=== PATIENT | male | born 1995 | race Caucasian/White ===

== ENCOUNTER 2018-02-14 16:42 | Emergency (ER) | payer BC ==
--- NOTE | 2018-02-14 16:48 | ER Report ---
History and Physical Time Seen By MD: 16:48 Hx. of Stated Complaint: HAD A 30 SEC SEIZURE WITNESSED BY WILBERT CHANG. 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 There is no head trauma. The patient states prior to the seizure he remembers playing baseball. He denies headache or chest pain or to the incident. He otherwise felt well and at his baseline. He denies any drug use or over-the- counter supplements or medications. He states the last time he drank alcohol was last weekend. He has not had a decrease in his sleep recently. His never had a seizure previously. No fever or chills. Currently he complains of just a mild headache which is not the worse of his life. Remainder of the 14 system rev: Yes (ARIANNA TRINIDAD MD) HPI/ROS Please see Dr. Trinidad's note (SANDRA KEARNS DO) Allergies: Coded Allergies: metoclopramide (Verified Allergy, Unknown, HIVES, 02/14/18) Penicillins (Verified Adverse Reaction, Unknown, HIVES, 02/14/18) Home Meds Reported Medications Venlafaxine Hcl (EFFEXOR XR) 150 Mg Cap.er.24h, 150 MG PO QDAY 02/14/18 Minocycline Hcl (MINOCYCLINE HCL) 100 Mg Capsule, 100 MG PO BID, CAPSULE 02/14/18 Alprazolam (XANAX) 0.5 Mg Tablet, 1 TAB PO TID PRN for ANXIETY, TAB 02/14/18 Reviewed Nurses Notes: Yes (ARIANNA TRINIDAD MD) Constitutional Vital Sign - Last 24 Hours 02/14/18 02/14/18 02/14/18 02/14/18 16:42 16:44 17:00 17:12 Pulse 119 112 89 Resp 14 15 B/P (MAP) 133/91 (105) 133/91 112/65 (81) Pulse Ox 94 94 93 O2 Delivery Room Air Room Air Room Air 02/14/18 02/14/18 02/14/18/20/18 17:30 17:42 17:47 18:00 Pulse 86 85 Resp 12 10 B/P (MAP) 117/62 (80) 106/79 (88) Pulse Ox 96 98 O2 Delivery Room Air Room Air 02/14/18 02/14/18 18:17 18:30 Pulse 76 Resp 11 B/P (MAP) 118/91 (100) Pulse Ox 98 O2 Delivery Room Air (SANDRA KEARNS DO) Physical Exam General Appearance: The patient is alert, has no immediate need for airway protection and no current signs of toxicity. Eyes: Pupils equal and round no injection. Respiratory: Chest is non tender, lungs are clear to auscultation. Cardiac: regular rate and rhythm Gastrointestinal: Abdomen is soft and non tender, no masses, bowel sounds normal. Neck: Neck is supple and non tender. Extremities have full range of motion and are non tender. Skin: Small abrasion to the left elbow DIFFERENTIAL DIAGNOSIS: After history and physical exam differential diagnosis was considered for intracranial mass, intracranial hemorrhage, toxidrome or withdrawal, new onset seizure disorder (ARIANNA TRINIDAD MD) Physical Exam Please see Dr. Trinidad's note (SANDRA KEARNS DO) Medical Decision Making Data Points Result Diagram: 02/14/18 1650 02/14/18 1650 Laboratory Hematology Test 02/14/18 16:50 02/14/18 17:55 02/14/18 18:32 Red Blood Count 6.24 M/uL (4.00-5.60) Mean Corpuscular Volume 87.5 fL (80.0-96.0) Mean Corpuscular Hemoglobin 29.4 pg (26.0-33.0) Mean Corpuscular Hemoglobin Concent 33.5 g/dL (32.0-36.0) Red Cell Distribution Width 13.3 % (11.5-14.5) Mean Platelet Volume 8.9 fL (7.2-11.1) Neutrophils (%) (Auto) 63.2 % (39.4-72.5) Lymphocytes (%) (Auto) 25.1 % (17.6-49.6) Monocytes (%) (Auto) 9.8 % (4.1-12.4) Eosinophils (%) (Auto) 0.6 % (0.4-6.7) Basophils (%) (Auto) 1.3 % (0.3-1.4) Nucleated RBC Relative Count (auto) 0.0 /100WBC Neutrophils # (Auto) 4.6 K/uL (2.0-7.4) Lymphocytes # (Auto) 1.8 K/uL (1.3-3.6) Monocytes # (Auto) 0.7 K/uL (0.3-1.0) Eosinophils # (Auto) 0.0 K/uL (0.0-0.5) Basophils # (Auto) 0.1 K/uL (0.0-0.1) Nucleated RBC Absolute Count (auto) 0.00 K/uL Sodium Level 142 mmol/L (137-145) Potassium Level 4.1 mmol/L (3.5-5.0) Chloride Level 103 mmol/L (98-107) Carbon Dioxide Level 16 mmol/L (22-30) Blood Urea Nitrogen 13 mg/dl (9-21) Creatinine 1.20 mg/dl (0.66-1.25) Glomerular Filtration Rate Calc > 60.0 Random Glucose 99 mg/dl (75-110) Calcium Level 9.1 mg/dl (8.4-10.2) Total Bilirubin 0.6 mg/dl (0.2-1.3) Aspartate Amino Transf (AST/SGOT) 50 U/L (0-35) Alanine Aminotransferase (ALT/SGPT) 54 U/L (0-56) Alkaline Phosphatase 92 U/L (0-126) Total Protein 7.9 g/dl (6.3-8.2) Albumin 4.7 g/dl (3.5-5.0) Serum Alcohol < 10 mg/dl Lactate 1.8 mmol/L (0.7-2.1) Urine Color Yellow Urine Clarity Clear Urine pH 5.0 pH (4.8-9.5) Urine Specific [place] 1.015 Urine Protein Negative mg/dL (NEGATIVE) Urine Glucose (UA) Negative mg/dL (NEGATIVE) Urine Ketones Negative mg/dL (NEGATIVE) Urine Blood Small (NEGATIVE) Urine Nitrite Negative (NEGATIVE) Urine Bilirubin Negative (NEGATIVE) Urine Urobilinogen Negative mg/dL (0.2-1.9) Urine Leukocyte Esterase Negative (NEGATIVE) Urine RBC None /HPF (0-2/HPF) Urine WBC <1 /HPF (0-5/HPF) Urine Squamous Epithelial Cells Few /LPF (</=FEW) Urine Bacteria Few /HPF (NONE-FEW) Urine Mucus None /HPF (NONE-FEW) Urine Opiates Screen Negative Urine Barbiturates Screen Negative Ur Tricyclic Antidepressants Screen Negative Urine Phencyclidine Screen Negative Urine Amphetamines Screen Negative Urine Benzodiazepines Screen Negative Urine Cocaine Screen Negative Urine Cannabinoids Screen Negative Chemistry Test 02/14/18 16:50 02/14/18 17:55 02/14/18 18:32 White Blood Count 7.3 k/uL (4.5-11.0) Red Blood Count 6.24 M/uL (4.00-5.60) Hemoglobin 18.3 g/dL (14.0-18.0) Hematocrit 54.6 % (42.0-52.0) Mean Corpuscular Volume 87.5 fL (80.0-96.0) Mean Corpuscular Hemoglobin 29.4 pg (26.0-33.0) Mean Corpuscular Hemoglobin Concent 33.5 g/dL (32.0-36.0) Red Cell Distribution Width 13.3 % (11.5-14.5) Platelet Count 322 K/uL (150-450) Mean Platelet Volume 8.9 fL (7.2-11.1) Neutrophils (%) (Auto) 63.2 % (39.4-72.5) Lymphocytes (%) (Auto) 25.1 % (17.6-49.6) Monocytes (%) (Auto) 9.8 % (4.1-12.4) Eosinophils (%) (Auto) 0.6 % (0.4-6.7) Basophils (%) (Auto) 1.3 % (0.3-1.4) Nucleated RBC Relative Count (auto) 0.0 /100WBC Neutrophils # (Auto) 4.6 K/uL (2.0-7.4) Lymphocytes # (Auto) 1.8 K/uL (1.3-3.6) Monocytes # (Auto) 0.7 K/uL (0.3-1.0) Eosinophils # (Auto) 0.0 K/uL (0.0-0.5) Basophils # (Auto) 0.1 K/uL (0.0-0.1) Nucleated RBC Absolute Count (auto) 0.00 K/uL Glomerular Filtration Rate Calc > 60.0 Calcium Level 9.1 mg/dl (8.4-10.2) Total Bilirubin 0.6 mg/dl (0.2-1.3) Aspartate Amino Transf (AST/SGOT) 50 U/L (0-35) Alanine Aminotransferase (ALT/SGPT) 54 U/L (0-56) Alkaline Phosphatase 92 U/L (0-126) Total Protein 7.9 g/dl (6.3-8.2) Albumin 4.7 g/dl (3.5-5.0) Serum Alcohol < 10 mg/dl Lactate 1.8 mmol/L (0.7-2.1) Urine Color Yellow Urine Clarity Clear Urine pH 5.0 pH (4.8-9.5) Urine Specific [place] 1.015 Urine Protein Negative mg/dL (NEGATIVE) Urine Glucose (UA) Negative mg/dL (NEGATIVE) Urine Ketones Negative mg/dL (NEGATIVE) Urine Blood Small (NEGATIVE) Urine Nitrite Negative (NEGATIVE) Urine Bilirubin Negative (NEGATIVE) Urine Urobilinogen Negative mg/dL (0.2-1.9) Urine Leukocyte Esterase Negative (NEGATIVE) Urine RBC None /HPF (0-2/HPF) Urine WBC <1 /HPF (0-5/HPF) Urine Squamous Epithelial Cells Few /LPF (</=FEW) Urine Bacteria Few /HPF (NONE-FEW) Urine Mucus None /HPF (NONE-FEW) Urine Opiates Screen Negative Urine Barbiturates Screen Negative Ur Tricyclic Antidepressants Screen Negative Urine Phencyclidine Screen Negative Urine Amphetamines Screen Negative Urine Benzodiazepines Screen Negative Urine Cocaine Screen Negative Urine Cannabinoids Screen Negative Toxicology Test 02/14/18 16:50 02/14/18 18:32 Serum Alcohol < 10 mg/dl Urine Opiates Screen Negative Urine Barbiturates Screen Negative Ur Tricyclic Antidepressants Screen Negative Urine Phencyclidine Screen Negative Urine Amphetamines Screen Negative Urine Benzodiazepines Screen Negative Urine Cocaine Screen Negative Urine Cannabinoids Screen Negative Urinalysis Test 02/14/18 18:32 Urine Color Yellow Urine Clarity Clear Urine pH 5.0 pH (4.8-9.5) Urine Specific [place] 1.015 Urine Protein Negative mg/dL (NEGATIVE) Urine Glucose (UA) Negative mg/dL (NEGATIVE) Urine Ketones Negative mg/dL (NEGATIVE) Urine Blood Small (NEGATIVE) Urine Nitrite Negative (NEGATIVE) Urine Bilirubin Negative (NEGATIVE) Urine Urobilinogen Negative mg/dL (0.2-1.9) Urine Leukocyte Esterase Negative (NEGATIVE) Urine RBC None /HPF (0-2/HPF) Urine WBC <1 /HPF (0-5/HPF) Urine Squamous Epithelial Cells Few /LPF (</=FEW) Urine Bacteria Few /HPF (NONE-FEW) Urine Mucus None /HPF (NONE-FEW) (SNADRA KEARNS DO) EKG/Imaging Imaging EXAMINATION: CT head without IV contrast HISTORY: Seizure. TECHNIQUE: Axial CT images of the head were obtained from the vertex to the skull base without IV contrast, with coronal and sagittal 2D reconstructed images. One of the following dose optimization techniques was utilized in the performance of this exam: Automated exposure control; adjustment of the mA and/or kV according to the patient's size; or use of an iterative reconstruction technique. Specific details can be referenced in the facility's radiology CT exam operational policy. COMPARISON: None. FINDINGS: The intracranial contents are unremarkable. No CT evidence of intracranial hemorrhage, mass lesion, or acute infarct. No midline shift or extra-axial fluid collections. Cordero-white differentiation is maintained. The calvarium is intact. The visualized paranasal sinuses and mastoid air cells are unopacified. IMPRESSION: Unremarkable noncontrast head CT. (SANDRA KEARNS DO) ED Course/Re-evaluation ED Course I took over patient care from Dr. Trinidad. Patient's CT scan of the head showed no acute intracranial findings. Urinalysis and urine tox screen were negative and unremarkable for infection. I updated the patient and obtain further details. I called and spoke with neurology concrete float maker from [facility] Dr. Barrientos and gave Dr. Barrientos the patient's name and contact information and took down neurology office contact information to arrange for close follow-up. Patient was given seizure precautions and advised not to drive or place himself in situations that if he had recurrent seizures would put him in danger. Patient agreed with plan. Patient will not drive until he is able follow up with neurology. Patient was alert and oriented, hemodynamically stable, afebrile prior to discharge. Decision to Disposition Date: Feb 14, 2018 Decision to Disposition Time: 19:31 (SANDRA KEARNS DO) Depart Departure Latest Vital Signs Vital Signs Date Time Temp Pulse Resp B/P (MAP) Pulse Ox O2 Delivery O2 Flow Rate FiO2 02/14/18 18:30 118/91 (100) 02/14/18 18:17 76 11 98 Room Air (SANDRA KEARNS DO) Impression: Primary Impression: Seizure Condition: Improved Disposition: HOME OR SELF-CARE Patient Instructions: New-Onset Seizure in Adults (ED) Additional Instructions: You are not permitted to drive until you're able to follow up with neurology for evaluation. Please do not place yourself in any situations in which if you had a recurrent seizure would place you in danger. Please return promptly if you develop recurrent seizure activity. Please drink plenty of water and avoid a lcohol or drug use in the interim. CT imaging of her head was unremarkable, your labs were found to be normal. Your name and contact information were supplied to the neurologist on-call from [facility]. The office will contact you tomorrow to arrange for an appointment. If he did not hear from the office tomorrow, please call [phone]. ARIANNA TRINIDAD MD Feb 14, 2018 16:48 SANDRA KEARNS DO Feb 14, 2018 19:33
[2018-02-14] MEDS ORDERED: ALPR-429 PO (16:51)
[2018-02-14] MEDS ORDERED: MINO100C27 PO (16:53)
[2018-02-14] MEDS ORDERED: ONDANSETRON 4 MG/2 ML VIAL ONE ×2 (16:53→16:56)
[2018-02-14] MEDS ORDERED: VENL150C61 PO (17:12)
[2018-02-14] MEDS ORDERED: NS(*) 0.9% 1000 ML BAG 1,000 ML IV ONE (17:30)
[2018-02-14 17:46] LABS: PLATELET COUNT, AUTOMATED 322 K/uL (150-450)
--- NOTE | 2018-02-14 17:57 | EKG ---
FACILITY: [facility] [place] PATIENT NAME: FORD LOONEY : [id number] MR: [id number] V: [id number] EXAM DATE: ORDERING PHYSICIAN: ARIANNA TRINIDAD TECHNOLOGIST: PAUL Test Reason : SIEZURE ACTIVITY Blood Pressure : / mmHG Vent. Rate : 075 BPM Atrial Rate : 075 BPM P-R Int : 170 ms QRS Dur : 092 ms QT Int : 400 ms P-R-T Axes : 067 088 069 degrees QTc Int : 446 ms Normal sinus rhythm Early repolarization QRS voltages are marginally high which may be due to age or possibly LVH. No previous ECGs available Confirmed by WILL YANEZ ([id number]) on 02/14/2018 7:07:45 PM Referred By: AMOS Confirmed By:WILL YANEZ
--- NOTE | 2018-02-14 18:37 | RADIOLOGY IMAGING REPORT ---
FACILITY: [facility] - [place] PATIENT NAME: Portillo Licona : 1995 MR: [id number] V: [id number] EXAM DATE: ORDERING PHYSICIAN: ARIANNA TRINIDAD TECHNOLOGIST: Location: [facility] Patient: Portillo Licona : 1995 Visit/Account:[id number] Date of Sevice: 02/14/2018 EXAMINATION: CT head without IV contrast HISTORY: Seizure. TECHNIQUE: Axial CT images of the head were obtained from the vertex to the skull base without IV c ontrast, with coronal and sagittal 2D reconstructed images. One of the following dose optimization techniques was utilized in the performance of this exam: Autom ated exposure control; adjustment of the mA and/or kV according to the patient's size; or use of an i terative reconstruction technique. Specific details can be referenced in the facility's radiology C T exam operational policy. COMPARISON: None. FINDINGS: The intracranial contents are unremarkable. No CT evidence of intracranial hemorrhage, mass lesion, or acute infarct. No midline shift or extra-axial fluid collections. Cordero-white differentiation is maintained. The calvarium is intact. The visualized paranasal sinuses and mastoid air cells are unopacified. IMPRESSION: Unremarkable noncontrast head CT. Report Dictated By: Alex Interiano MD at 02/14/2018 6:32 PM Report E-Signed By: Alex Interiano MD at 02/14/2018 6:34 PM WSN:[id number]
[2018-02-14] MEDS ORDERED: CETIRIZINE HCL 10 MG TAB PO ONE (18:45)
[2018-02-14 19:30] VITALS: BP 120/70
== END 2018-02-14 19:47 | disposition home or self-care (01) ==
LOC: ER 16:47
DX: R56.9 Unspecified convulsions (principal)
CPT/HCPCS: 36415; 70450; 80305; 80320; 81001; 83605; 85025; 93005; 96360; 99284; J2405; J7030; 82040; 82247; 82310; 82374; 82435; 82565; 82947; 84075; 84132; 84155; 84295; 84450; 84460; 84520

== ENCOUNTER → 2018-02-14 | Outpatient (CLI) | payer BC ==
[~2018-02-14] MED LIST: ALPR-429 PO; MINO100C27 PO; VENL150C61 PO
== END ==
LOC: AMB 16:23
PROVIDERS: ATTEND Nurse Practitioner
DX: R56.9 Unspecified convulsions (principal)
CPT/HCPCS: A0425; A0427

== ENCOUNTER 2018-06-28 14:55 | Emergency (ER) | payer BC ==
[~2018-06-28 14:55] MED LIST changes: -LEVE750T74 PO
--- NOTE | 2018-06-28 15:14 | ER Report ---
History and Physical Time Seen By MD: 15:13 Hx. of Stated Complaint: 90 second seizure, frontal headache HPI/ROS CHIEF COMPLAINT: seizure HISTORY OF PRESENT ILLNESS: Pt here for evaluation after a seizure. Pt states he was feeling fine and then blacked out. Friend states he slid down the wall and was seizing when he hit the floor. Tonic clonic for 60-90 seconds then was postictal for 20 minutes or so. Pt alert in the emergency room. Pt c/o mild headache and asked for tylenol. Pt has no other complaints. Pt had his first seizure back in Jan. Pt states he followed up with a neurologist back then and was told he was okay. Pt is not on any antiseizure medications. Pt had no prior hx of seizures prior to this past january. Pt denies drug useage. Pt edward any hx of seizures as child. Pt did not loose bowel or bladder or bite his tongue on todays episode. REVIEW OF SYSTEMS: Constitutional: No fever, no chills. Eyes: No discharge. ENT: No sore throat. Cardiovascular: No chest pain, no palpitations. Respiratory: No cough, no shortness of breath. Gastrointestinal: No abdominal pain, no vomiting. Genitourinary: No hematuria. Musculoskeletal: No back pain. Skin: No rashes. Neurological: + headache, +seizure. Allergies: Coded Allergies: metoclopramide (Verified Allergy, Unknown, HIVES, 02/14/18) Penicillins (Verified Adverse Reaction, Unknown, HIVES, 02/14/18) Home Meds Active Scripts Levetiracetam (KEPPRA) 750 Mg Tablet, 750 MG PO BID, #60 TAB 1 Refill Prov:ADAMAAMADOR Cj ANDERSON 06/28/18 Reported Medications Venlafaxine Hcl (EFFEXOR XR) 150 Mg Cap.er.24h, 150 MG PO QDAY 02/14/18 Minocycline Hcl (MINOCYCLINE HCL) 100 Mg Capsule, 100 MG PO BID, CAPSULE 02/14/18 Alprazolam (XANAX) 0.5 Mg Tablet, 1 TAB PO TID PRN for ANXIETY, TAB 02/14/18 Past Medical/Surgical History pmhx: seizures,anxiety, acne Pshx: noncontrib Reviewed Nurses Notes: Yes Old Medical Records Reviewed: Yes Hx Smoking: No Hx Substance Use Disorder: No Hx Alcohol Use: Yes (occasional) Constitutional Vital Sign - Last 24 Hours 06/28/18 06/28/18 06/28/18 06/28/18 14:55 14:56 14:58 15:00 Temp 98.8 Pulse ??? 109 Resp 14 B/P (MAP) 130/74 136/76 (96) 130/74 (92) Pulse Ox 94 O2 Delivery Room Air 06/28/18 06/28/18 06/28/18 06/28/18 15:10 15:25 15:30 15:40 Pulse 105 89 90 B/P (MAP) 131/82 (98) Pulse Ox 95 97 96 06/28/18 06/28/18 06/28/18 06/28/18 15:55 16:00 16:10 16:25 Pulse 94 98 ??? B/P (MAP) 148/65 (92) Pulse Ox 99 97 06/28/18 06/28/18 06/28/18 06/28/18 16:30 16:35 16:50 17:00 Pulse 90 75 B/P (MAP) 132/85 (101) 126/84 (98) Pulse Ox 98 06/28/18 06/28/18 06/28/18 06/28/18 17:05 17:20 17:30 17:35 Pulse ? B/P (MAP) ???/??? (1665) 06/28/18 06/28/18 06/28/18 06/28/18 17:42 17:50 18:00 18:05 Pulse 73 88 B/P (MAP) 143/87 (105) 122/93 (103) Pulse Ox 97 96 06/28/18 18:20 Pulse ??? Physical Exam General Appearance: The patient is alert, has no immediate need for airway protection and no signs of toxicity. Eyes: Pupils equal and round no pallor or injection, EOMI ENT: no pharyngeal erythema or exudates, Mucous membranes are moist, TM are nl b/l,neg hemotympanums Respiratory: There are no retractions, lungs are clear to auscultation. Cardiovascular: Regular rate and rhythm. pulses are equal and symmetrical Gastrointestinal: Abdomen is soft and non tender, no masses, bowel sounds normal, no guarding, no rigidity or rebound Neurological: Cranial nerves II-XII grossly intact, no sensory or motor loss Skin: Warm and dry, no rashes. Musculoskeletal: Neck is supple non tender, no vertebral tenderness Extremities are non tender, non swollen and have full range of motion. DIFFERENTIAL DIAGNOSIS: After history and physical exam differential diagnosis was considered for recurrent seizure, electrolyte abnormality, intracranial bleed Medical Decision Making Data Points Result Diagram: 06/28/18 1450 06/28/18 1450 Laboratory Hematology Test 06/28/18 14:50 06/28/18 15:27 Red Blood Count 6.01 M/uL (4.00-5.60) Mean Corpuscular Volume 89.1 fL (80.0-96.0) Mean Corpuscular Hemoglobin 29.3 pg (26.0-33.0) Mean Corpuscular Hemoglobin Concent 32.9 g/dL (32.0-36.0) Red Cell Distribution Width 13.5 % (11.5-14.5) Mean Platelet Volume 8.5 fL (7.2-11.1) Neutrophils (%) (Auto) 58.5 % (39.4-72.5) Lymphocytes (%) (Auto) 28.9 % (17.6-49.6) Monocytes (%) (Auto) 11.5 % (4.1-12.4) Eosinophils (%) (Auto) 0.6 % (0.4-6.7) Basophils (%) (Auto) 0.5 % (0.3-1.4) Nucleated RBC Relative Count (auto) 0.1 /100WBC Neutrophils # (Auto) 4.3 K/uL (2.0-7.4) Lymphocytes # (Auto) 2.1 K/uL (1.3-3.6) Monocytes # (Auto) 0.8 K/uL (0.3-1.0) Eosinophils # (Auto) 0.0 K/uL (0.0-0.5) Basophils # (Auto) 0.0 K/uL (0.0-0.1) Nucleated RBC Absolute Count (auto) 0.01 K/uL Sodium Level 140 mmol/L (137-145) Potassium Level 4.4 mmol/L (3.5-5.0) Chloride Level 109 mmol/L (98-107) Carbon Dioxide Level 11 mmol/L (22-30) Blood Urea Nitrogen 10 mg/dl (9-21) Creatinine 1.20 mg/dl (0.66-1.25) Glomerular Filtration Rate Calc > 60.0 Random Glucose 88 mg/dl (75-110) Calcium Level 9.7 mg/dl (8.4-10.2) Total Bilirubin 0.4 mg/dl (0.2-1.3) Aspartate Amino Transf (AST/SGOT) 66 U/L (0-35) Alanine Aminotransferase (ALT/SGPT) 81 U/L (0-56) Alkaline Phosphatase 108 U/L (0-126) Total Protein 8.3 g/dl (6.3-8.2) Albumin 5.1 g/dl (3.5-5.0) Urine Opiates Screen Negative Urine Barbiturates Screen Negative Ur Tricyclic Antidepressants Screen Negative Urine Phencyclidine Screen Negative Urine Amphetamines Screen Negative Urine Benzodiazepines Screen Negative Urine Cocaine Screen Negative Urine Cannabinoids Screen Negative Chemistry Test 06/28/18 14:50 06/28/18 15:27 White Blood Count 7.3 k/uL (4.5-11.0) Red Blood Count 6.01 M/uL (4.00-5.60) Hemoglobin 17.6 g/dL (14.0-18.0) Hematocrit 53.5 % (42.0-52.0) Mean Corpuscular Volume 89.1 fL (80.0-96.0) Mean Corpuscular Hemoglobin 29.3 pg (26.0-33.0) Mean Corpuscular Hemoglobin Concent 32.9 g/dL (32.0-36.0) Red Cell Distribution Width 13.5 % (11.5-14.5) Platelet Count 308 K/uL (150-450) Mean Platelet Volume 8.5 fL (7.2-11.1) Neutrophils (%) (Auto) 58.5 % (39.4-72.5) Lymphocytes (%) (Auto) 28.9 % (17.6-49.6) Monocytes (%) (Auto) 11.5 % (4.1-12.4) Eosinophils (%) (Auto) 0.6 % (0.4-6.7) Basophils (%) (Auto) 0.5 % (0.3-1.4) Nucleated RBC Relative Count (auto) 0.1 /100WBC Neutrophils # (Auto) 4.3 K/uL (2.0-7.4) Lymphocytes # (Auto) 2.1 K/uL (1.3-3.6) Monocytes # (Auto) 0.8 K/uL (0.3-1.0) Eosinophils # (Auto) 0.0 K/uL (0.0-0.5) Basophils # (Auto) 0.0 K/uL (0.0-0.1) Nucleated RBC Absolute Count (auto) 0.01 K/uL Glomerular Filtration Rate Calc > 60.0 Calcium Level 9.7 mg/dl (8.4-10.2) Total Bilirubin 0.4 mg/dl (0.2-1.3) Aspartate Amino Transf (AST/SGOT) 66 U/L (0-35) Alanine Aminotransferase (ALT/SGPT) 81 U/L (0-56) Alkaline Phosphatase 108 U/L (0-126) Total Protein 8.3 g/dl (6.3-8.2) Albumin 5.1 g/dl (3.5-5.0) Urine Opiates Screen Negative Urine Barbiturates Screen Negative Ur Tricyclic Antidepressants Screen Negative Urine Phencyclidine Screen Negative Urine Amphetamines Screen Negative Urine Benzodiazepines Screen Negative Urine Cocaine Screen Negative Urine Cannabinoids Screen Negative Toxicology Test 06/28/18 15:27 Urine Opiates Screen Negative Urine Barbiturates Screen Negative Ur Tricyclic Antidepressants Screen Negative Urine Phencyclidine Screen Negative Urine Amphetamines Screen Negative Urine Benzodiazepines Screen Negative Urine Cocaine Screen Negative Urine Cannabinoids Screen Negative ED Course/Re-evaluation Clinical Indication for ER IV: IV Access ED Course 06/28/2018 3:44:57 pm Spoke with pts parents. States pt saw Dr. Charles neuro in [place] back in the fall. Pt was supposed to have a MRI but never had it completed per parents. Parents are concerned that he is on Effexor for anxiety and it can cause seizures. The effexor is not new however. Will attempt to speak wtih Dr. Charles. 06/28/2018 4:10:[address] Funk, Neurologist [facility] at [place]. He feels pt needs either an MRI or CT. Parents were against the CT due to radiation so will attempt MRI of brain. HE felt pt is now considered to have seizure disorder and needs to be on an anticonvulsive medication. He suggested Keppra 750mg bid with 1000mg load in ED now. States that Keppra can make pts irritable and if that occurs the pt can discuss with Dr. Charles alternative medications. He state pt is not allowed to drive until cleared to drive by Dr. Charles. States pt will need EEG as outpt if he has not had it already. Did discuss if pt should gisele off Effexor due to the seizure side effect. He feels effexor dose lower the seizure Threshold but it was minimal and does not feel that it needs to be stopped immediately but can be discussed with his primary at a later time. 06/28/2018 4:21:09 pm Spoke to pts parents [phone]. They are aware that he is getting an MRI. They are aware he will be on Keppra. And they were notified that he will not be allowed to drive until he is cleared by neurology. Parents state they understand. 06/28/2018 4:30:08 pm PT is filling paperwork for MRI consent. Pt states he is not claustrophobic. Did review with pt that he will be on a new medication. Let him know that he will also not be able to drive. Pt states that he is aware because he could not drive after the first seizure. Decision to Disposition Date: Jun 28, 2018 Decision to Disposition Time: 18:30 Depart Departure Latest Vital Signs Vital Signs Date Time Temp Pulse Resp B/P (MAP) Pulse Ox O2 Delivery O2 Flow Rate FiO2 06/28/18 18:20 ??? 06/28/18 18:05 96 06/28/18 18:00 122/93 (103) 06/28/18 14:56 98.8 14 Room Air Impression: Primary Impression: Seizure Condition: Stable Disposition: HOME OR SELF-CARE Referrals: LEONEL CHARLES MD Call on Sunday to make an appointment when available. This is the Neurologist you were referred to back in January. New Scripts Levetiracetam (KEPPRA) 750 Mg Tablet 750 MG PO BID, #60 TAB 1 Refill Prov: PATYELVERAMADOR Cj DO 06/28/18 Patient Instructions: New-Onset Seizure in Adults (ED) Additional Instructions: You are NOT allowed to drive an automobile until you are cleared by Neurology to drive. It is illegal to drive due to seizure disorder. We are starting you on Keppra 750mg twice a day. This is a medication that prevents seizures. You need to follow up with the Neurologist in [place]. Neurologist will be the person that clears you to drive. They may also change or alter you medications. Call to make an appointment. When you are back in [place] seeing your family doctor, you can discuss if they want to adjust/stop your Effexor. This medication can lower your threshold for seizures. This medication can not be stopped acutely but needs a taper. AMADOR GALAN DO Jun 28, 2018 15:14
[2018-06-28] MEDS ORDERED: ACETAMINOPHEN 325 MG TAB PO ONE (15:20)
[2018-06-28 15:33] LABS: PLATELET COUNT, AUTOMATED 308 K/uL (150-450)
[2018-06-28] MEDS ORDERED: NS(*) 0.9% 1000 ML BAG 1,000 ML IV ONE (15:50)
[2018-06-28] MEDS ORDERED: levETIRAcetam 500 MG TAB PO ONE (16:10)
[2018-06-28] MEDS ORDERED: LEVE750T74 PO (16:32)
[2018-06-28 18:00] VITALS: BP 122/93
--- NOTE | 2018-06-28 18:01 | RADIOLOGY IMAGING REPORT ---
FACILITY: [facility] - [place] PATIENT NAME: Portillo Licona : 1995 MR: [id number] V: [id number] EXAM DATE: ORDERING PHYSICIAN: AMADOR GALAN TECHNOLOGIST: Location: [facility] [place] Patient: Portillo Licona : 1995 Visit/Account:[id number] Date of Sevice: 06/28/2018 MRI Brain without IV contrast Indication: Seizure today. First seizure and January 2018. Headache. Comparison: None available Technique: Sagittal T1-weighted, axial FLAIR, T2-weighted T1-weighted, gradient echo, coronal T2-weig hted, axial diffusion weighted and ADC map images were obtained through the brain. IV contrast was n ot administered. Findings: No intracranial bleed, midline shift, mass, mass effect, extra-axial fluid collection or hydrocephalu s. No abnormal signal. Cordero/white matter differentiation appears normal. The pituitary is unremarkabl e. Vascular flow voids appear normal. Sinuses and mastoids visualized are clear. Bilateral globes are intact. IMPRESSION: 1. No acute or focal abnormality. Report Dictated By: Héctor Martino at 06/28/2018 5:47 PM Report E-Signed By: Héctor Martino at 06/28/2018 5:56 PM WSN:[id number]
== END 2018-06-28 18:30 | disposition home or self-care (01) ==
LOC: ER 15:12
DX: R56.9 Unspecified convulsions (principal)
CPT/HCPCS: 70551; 80305; 85025; 96360; 99284; J7030; 82040; 82247; 82310; 82374; 82435; 82565; 82947; 84075; 84132; 84155; 84295; 84450; 84460; 84520

== ENCOUNTER → 2018-06-28 | Outpatient (CLI) | payer BC ==
[~2018-06-28] MED LIST changes: +LEVE750T74 PO
== END ==
LOC: AMB 14:27
PROVIDERS: ATTEND Nurse Practitioner
DX: R56.9 Unspecified convulsions (principal); R53.1 Weakness
CPT/HCPCS: A0425; A0427